=== PATIENT | female | born 1960 | race Caucasian/White ===

== ENCOUNTER 2017-03-27 15:22 | Emergency (ER) | payer MEDICAID, OTHER ==
[~2017-03-27] VITALS: Ht 157.5 cm; Wt 49.9 kg
[2017-03-27 15:37] VITALS: BP 134/79
--- NOTE | 2017-03-27 16:52 | NUR ---
Patient ambulated to bed 5. RN evaluating patient at bedside.
--- NOTE | 2017-03-27 16:53 | NUR ---
PATIENT PRESENTS TO ED WITH PT PRESENTS TO ER W/C/O DIZZINESS X3 DAYS. HX HTN, ASTHMA. PT STATES I RIDE THE BUS GOING HERE,PT CLAIMED I FEEL PAIN ON MY RIGHT ARM, CHEST AND HEAD. WITH CHILLS,DENIES N/V/D; SKIN IS PINK/WARM/DRY; AAOX4 WITH EVEN AND STEADY GAIT; LUNGS CLEAR BL; HR EVEN AND REGULAR; PT DENIES ANY FEVER, CP, SOB, OR COUGH AT THIS TIME; PATIENT STATES PAIN OF 10/10 AT THIS TIME; PATIENT POSITIONED FOR COMFORT; HOB ELEVATED; BEDRAILS UP X2; BED DOWN. ER MD MADE AWARE OF PT STATUS.
--- NOTE | 2017-03-27 17:50 | NUR ---
DR. SANCHEZ AT BEDSIDE
[2017-03-27] MEDS ORDERED: fentaNYL 0.05 MG/ML VIAL IVP ONE (17:55)
[2017-03-27] MEDS ORDERED: ONDANSETRON 4 MG/2 ML VIAL IVP ONE (17:55)
[2017-03-27] MEDS ORDERED: ASPIRIN 81 MG TAB.CHEW PO ONE (17:55)
--- NOTE | 2017-03-27 17:56 | NUR ---
RELAYED TO DR. SANCHEZ RESULT OF URINE DIPSTICK AND URINE
[2017-03-27 18:15] LABS: BASOPHILS # (AUTO) 0.2 K/uL (0.00-0.22); EOSINOPHILS # (AUTO) 0.1 K/uL (0-0.4); EOSINOPHILS % (AUTO) 3.4 % (0.0-4.0); HEMATOCRIT 39.9 % (36-48); HEMOGLOBIN 13.1 g/dL (12.0-16.0); LYMPHOCYTES # (AUTO) 1.5 K/uL (2.5-16.5); LYMPHOCYTES % (AUTO) 39.8 % (20.5-51.1); MEAN CORPUSCULAR HEMOGLOBIN 30 pg (27-31); MEAN CORPUSCULAR HGB CONC 33 g/dL (33-37); MEAN CORPUSCULAR VOLUME 90 fL (80-94); MONOCYTES # (AUTO) 0.4 K/uL (0.8-1.0); MONOCYTES % (AUTO) 11.3 % (1.7-9.3); NEUTROPHILS # (AUTO) 1.7 K/uL (1.8-7.7); PLATELET COUNT (AUTO) 206 K/uL (140-450); RED BLOOD CELL COUNT(AUTO) 4.41 MIL/uL (4.20-5.40); WHITE BLOOD COUNT (AUTO) 3.9 K/uL (4.8-10.8)
--- NOTE | 2017-03-27 18:21 | NUR ---
xray at bedside
[2017-03-27 18:28] LABS: APPEARANCE,URINE CLEAR (CLEAR); BILIRUBIN,URINE NEGATIVE (NEGATIVE); BLOOD, URINE NEGATIVE (NEGATIVE); COLOR,URINE YELLOW (YELLOW); LEUKOCYTE ESTERASE ,URINE NEGATIVE (NEGATIVE); NITRITE, URINE NEGATIVE (NEGATIVE); PROTEIN,URINE NEGATIVE (NEGATIVE); UGLUCOSE NEGATIVE (NEGATIVE); UROBILINOGEN,URINE 0.2 EU/dL (0.2 - 1)
[2017-03-27 18:29] LABS: CALCIUM 8.9 mg/dL (8.5-10.1); CARBON DIOXIDE 33.8 mmol/L (21-32); CREATININE 0.8 mg/dL (0.6-1.3); POTASSIUM 3.8 mmol/L (3.5-5.1)
[2017-03-27 18:32] LABS: INR 1.1 (0.8-1.2); PARTIAL THROMBOPLASTIN TIME 25.2 secs (22-35.6); PROTHROMBIN TIME 10.9 secs (10.8-13.4)
--- NOTE | 2017-03-27 18:32 | NUR ---
TALKED TO DR. SANCHEZ MADE AWARE O2 SAT 91 BUT NO SOBMD WITH ORDER
--- NOTE | 2017-03-27 18:33 | NUR ---
PT STILL C/O DIZZINESS, VITAL SIGN OBTAINED, PT AAO, EATING PUDDING AT THIS TIME
[2017-03-27 18:35] LABS: ALBUMIN 3.4 g/dL (3.4-5.0); TOTAL PROTEIN, SERUM 7.4 g/dL (6.4-8.2)
--- NOTE | 2017-03-27 19:13 | NUR ---
Pt report given to lucius. Transfer of care at this time.
--- NOTE | 2017-03-27 19:15 | NUR ---
REPORT RECEIVED FROM JANIE KILPATRICK
[2017-03-27] MEDS ORDERED: NACL 0.9% 1,000 ML IV ONE (20:05)
[2017-03-27] MEDS ORDERED: LORazepam 2 MG/ML VIAL IVP ONE (20:10)
--- NOTE | 2017-03-27 20:18 | NUR ---
TALKED WITH SOPHIA CULVER TO DISCHARGE PT AFTER IVF COMPLETE.
[2017-03-27 20:34] VITALS: BP 136/69
--- NOTE | 2017-03-27 20:35 | NUR ---
Patient discharged with v/s stable. Written and verbal after care instructions given and explained. Patient verbalized understanding. Ambulatory with steady gait. All questions addressed prior to discharge. Advised to follow up with PMD.
--- NOTE | 2017-03-30 21:58 | NUR ---
LATE ENTRY: NS COMPLETED AT 2034 WHEN PT WAS DISCHARGED.
== END 2017-03-27 20:34 | disposition home or self-care (01) ==
LOC: MED 15:22
DX: E86.0 Dehydration (principal); F41.9 Anxiety disorder, unspecified; I10 Essential (primary) hypertension
CPT/HCPCS: 36415; 71010; 80053; 81003; 81025; 83880; 84484; 85025; 85610; 85730; 93005; 96374; 96375; 99285; J2405; J3010; J7030; 81002; 96360

== ENCOUNTER 2018-05-15 17:13 | Emergency (ER) | payer OTHER ==
[~2018-05-15] VITALS: Ht 157.5 cm; Wt 54.0 kg
[2018-05-15 17:15] VITALS: BP 146/64
[2018-05-15] MEDS ORDERED: KETOROLAC 30 MG/ML VIAL IVP ONE (17:50)
[2018-05-15] MEDS ORDERED: LORazepam 2 MG/ML VIAL IVP ONE (17:50)
[2018-05-15 18:26] LABS: BASOPHILS % (AUTO) 0.4 % (0.0-2.0); EOSINOPHILS # (AUTO) 0.2 K/uL (0-0.4); EOSINOPHILS % (AUTO) 4.6 % (0.0-4.0); HEMOGLOBIN 12.1 g/dL (12.0-16.0); LYMPHOCYTES # (AUTO) 1.6 K/uL (2.5-16.5); LYMPHOCYTES % (AUTO) 40.1 % (20.5-51.1); MEAN CORPUSCULAR HEMOGLOBIN 30 pg (27-31); MEAN CORPUSCULAR HGB CONC 33 g/dL (33-37); MEAN CORPUSCULAR VOLUME 91.4 fL (80-94); MONOCYTES # (AUTO) 0.4 K/uL (0.8-1.0); MONOCYTES % (AUTO) 10.3 % (1.7-9.3); NEUTROPHILS # (AUTO) 1.8 K/uL (1.8-7.7); NEUTROPHILS % (AUTO) 44.6 % (42.2-75.2); PLATELET COUNT (AUTO) 172 K/uL (140-450); RED BLOOD CELL COUNT(AUTO) 4.04 MIL/uL (4.20-5.40); RED CELL DISTRIBUTION WIDTH 13.6 % (11.6-13.7)
[2018-05-15 18:41] LABS: ANION GAP 9.8 (8-16); CARBON DIOXIDE 31.1 mmol/L (21-32); CREATININE 0.8 mg/dL (0.6-1.3); POTASSIUM 3.9 mmol/L (3.5-5.1)
[2018-05-15 18:49] LABS: PROTHROMBIN TIME 10.9 secs (10.8-13.4)
[2018-05-15 19:09] LABS: ALBUMIN 3.1 g/dL (3.4-5.0)
[2018-05-15 20:55] VITALS: BP 138/62
== END 2018-05-15 20:55 | disposition home or self-care (01) ==
LOC: MED 17:13
DX: R07.89 Other chest pain (principal); F48.9 Nonpsychotic mental disorder, unspecified; M25.561 Pain in right knee; R20.0 Anesthesia of skin; I10 Essential (primary) hypertension
CPT/HCPCS: 36415; 71045; 80053; 83880; 84484; 85025; 85610; 85730; 93005; 96374; 96375; 99285; J1885; J2060

== ENCOUNTER 2018-09-11 08:35 | Emergency (ER) | payer OTHER ==
[~2018-09-11] VITALS: Ht 157.5 cm; Wt 47.6 kg
[2018-09-11 08:45] VITALS: BP 142/86
[2018-09-11] MEDS ORDERED: NACL 0.9% 500 ML IV SCH (09:11)
[2018-09-11 09:49] LABS: BASOPHILS # (AUTO) 0.1 K/uL (0.00-0.22); BASOPHILS % (AUTO) 0.6 % (0.0-2.0); EOSINOPHILS % (AUTO) 0.5 % (0.0-4.0); HEMATOCRIT 37.7 % (36-48); HEMOGLOBIN 12.4 g/dL (12.0-16.0); LYMPHOCYTES # (AUTO) 1.5 K/uL (2.5-16.5); MEAN CORPUSCULAR HEMOGLOBIN 30 pg (27-31); MEAN CORPUSCULAR HGB CONC 33 g/dL (33-37); MONOCYTES # (AUTO) 0.7 K/uL (0.8-1.0); MONOCYTES % (AUTO) 7.3 % (1.7-9.3); NEUTROPHILS # (AUTO) 7.1 K/uL (1.8-7.7); NEUTROPHILS % (AUTO) 75.6 % (42.2-75.2); PLATELET COUNT (AUTO) 207 K/uL (140-450); RED BLOOD CELL COUNT(AUTO) 4.14 MIL/uL (4.20-5.40); RED CELL DISTRIBUTION WIDTH 13.3 % (11.6-13.7); WHITE BLOOD COUNT (AUTO) 9.4 K/uL (4.8-10.8)
[2018-09-11 09:58] LABS: APPEARANCE,URINE CLEAR (CLEAR); BILIRUBIN,URINE NEGATIVE (NEGATIVE); BLOOD, URINE NEGATIVE (NEGATIVE); COLOR,URINE YELLOW (YELLOW); LEUKOCYTE ESTERASE ,URINE TRACE (NEGATIVE); NITRITE, URINE NEGATIVE (NEGATIVE); PH,URINE 8.5 (5.0-9.0); UGLUCOSE NEGATIVE (NEGATIVE)
[2018-09-11 09:59] LABS: RBC,URINE 0-5 (RARE) /HPF (0-5)
[2018-09-11 10:01] LABS: WBC,URINE 0-5 (RARE) /HPF (0-5)
[2018-09-11 10:07] LABS: PROTHROMBIN TIME 10.1 secs (10.8-13.4)
[2018-09-11 10:11] LABS: ANION GAP 12.2 (8-16); CARBON DIOXIDE 30.3 mmol/L (21-32); POTASSIUM 3.5 mmol/L (3.5-5.1)
[2018-09-11 10:12] LABS: CREATININE 0.8 mg/dL (0.6-1.3)
[2018-09-11 10:31] LABS: ALBUMIN 3.3 g/dL (3.4-5.0); TOTAL BILIRUBIN 1.3 mg/dL (0.0-1.0)
[2018-09-11] MEDS ORDERED: cefTRIAXone 1,000 MG VIAL ONE (11:50)
[2018-09-11 13:04] VITALS: BP 172/86
== END 2018-09-11 13:05 | disposition home or self-care (01) ==
LOC: MED 08:35
DX: N39.0 Urinary tract infection, site not specified (principal); N23 Unspecified renal colic; J45.909 Unspecified asthma, uncomplicated; I10 Essential (primary) hypertension; Z88.1 Allergy status to other antibiotic agents
CPT/HCPCS: 36415; 71045; 74176; 80053; 81001; 83605; 83880; 84484; 85025; 85610; 85730; 87040; 87086; 93005; 96361; 96365; 99284; J0696; J7030; Q0092

== ENCOUNTER 2019-06-01 16:35 | Emergency (ER) | payer OTHER ==
[~2019-06-01] VITALS: Ht 154.9 cm; Wt 54.9 kg
[2019-06-01 16:58] VITALS: BP 141/75
[2019-06-01] MEDS ORDERED: IBUPROFEN 400 MG TAB PO ONE (18:20)
[2019-06-01 19:28] VITALS: BP 130/74
== END 2019-06-01 19:28 | disposition home or self-care (01) ==
LOC: MED 16:35
DX: S90.122A Contusion of left lesser toe(s) without damage to nail, initial encounter (principal); M25.512 Pain in left shoulder; J45.909 Unspecified asthma, uncomplicated; I10 Essential (primary) hypertension; F41.9 Anxiety disorder, unspecified; Z86.718 Personal history of other venous thrombosis and embolism; Z88.1 Allergy status to other antibiotic agents; Z98.890 Other specified postprocedural states; W01.0XXA Fall on same level from slipping, tripping and stumbling without subsequent striking against object, initial encounter; Y93.89 Activity, other specified; Y92.89 Other specified places as the place of occurrence of the external cause; Y99.8 Other external cause status
CPT/HCPCS: 73030; 73660; 99283; Q0092

== ENCOUNTER 2023-03-30 15:25 | Emergency (ER) | payer MEDICAID, OTHER ==
[~2023-03-30] VITALS: Ht 157.5 cm; Wt 53.5 kg
[2023-03-30 15:50] VITALS: BP 143/89
--- NOTE | 2023-03-30 15:57 | NUR ---
pt ambulatory to gabrielle
[2023-03-30 16:27] LABS: BASOPHILS % (AUTO) 0.5 % (0.0-2.0); EOSINOPHILS # (AUTO) 0.2 K/uL (0-0.4); EOSINOPHILS % (AUTO) 3.4 % (0.0-4.0); HEMATOCRIT 40.1 % (36-48); HEMOGLOBIN 13.3 g/dL (12.0-16.0); LYMPHOCYTES # (AUTO) 1.8 K/uL (2.5-16.5); LYMPHOCYTES % (AUTO) 28.9 % (20.5-51.1); MEAN CORPUSCULAR HEMOGLOBIN 30 pg (27-31); MEAN CORPUSCULAR HGB CONC 33 g/dL (33-37); MEAN CORPUSCULAR VOLUME 89.2 fL (80-94); MONOCYTES # (AUTO) 0.7 K/uL (0.8-1.0); MONOCYTES % (AUTO) 11.2 % (1.7-9.3); NEUTROPHILS # (AUTO) 3.5 K/uL (1.8-7.7); PLATELET COUNT (AUTO) 297 K/uL (140-450); RED CELL DISTRIBUTION WIDTH 14.7 % (11.6-13.7); WHITE BLOOD COUNT (AUTO) 6.3 K/uL (4.8-10.8)
[2023-03-30 16:47] LABS: ALBUMIN 3.3 g/dL (3.4-5.0); ANION GAP 12.5 (8-16); CARBON DIOXIDE 31.5 mmol/L (21-32); CREATININE 1.1 mg/dL (0.6-1.3); TOTAL BILIRUBIN 0.9 mg/dL (0.0-1.0)
[2023-03-30] MEDS ORDERED: KETOROLAC 60 MG/2 ML VIAL IM ONE (17:25)
[2023-03-30] MEDS ORDERED: IBUP-2213 PO (17:29)
--- NOTE | 2023-03-30 17:46 | NUR ---
Patient discharged with v/s stable. Written and verbal after care instructions given and explained. Patient verbalized understanding. Pt has been medicated per providers orders. Pt has with steady gait. All questions addressed prior to discharge. Advised to follow up with PMD.
[2023-03-30 17:47] VITALS: BP 125/77
--- NOTE | 2023-03-30 17:56 | NUR ---
The patient's care was reviewed and supervised by Malone 05 STEPHANIE, RN.
== END 2023-03-30 17:46 | disposition home or self-care (01) ==
LOC: MED 15:25
DX: R10.84 Generalized abdominal pain (principal); J45.909 Unspecified asthma, uncomplicated; I10 Essential (primary) hypertension; Z88.8 Allergy status to other drugs, medicaments and biological substances; Z79.899 Other long term (current) drug therapy; Z90.49 Acquired absence of other specified parts of digestive tract
CPT/HCPCS: 36415; 74176; 80053; 83690; 85025; 96372; 99285; J1885

== ENCOUNTER 2023-04-02 11:44 | Inpatient (IN) | payer MEDICAID ==
[~2023-04-02] VITALS: Ht 157.5 cm; Wt 70.3 kg
[~2023-04-02 11:44] MED LIST: IBUP-2213 PO
[2023-04-02 11:47] VITALS: BP 146/86; PULSE 90; RESP 18; TEMP 97; O2SAT 93
[2023-04-02] MEDS ORDERED: NACL 0.9% 1,000 ML IV SCH (12:35)
[2023-04-02] MEDS ORDERED: KETOROLAC 30 MG/ML VIAL IVP ONE (12:40)
[2023-04-02] MEDS ORDERED: ALBUTEROL SULFATE/IPRATROPIU 3 ML SOL IH ONE (12:40)
[2023-04-02 12:47] VITALS: PULSE 83; RESP 16; O2SAT 94
[2023-04-02 13:04] LABS: BASOPHILS % (AUTO) 0.5 % (0.0-2.0); EOSINOPHILS # (AUTO) 0.2 K/uL (0-0.4); EOSINOPHILS % (AUTO) 3.3 % (0.0-4.0); HEMOGLOBIN 13.4 g/dL (12.0-16.0); LYMPHOCYTES # (AUTO) 1.2 K/uL (2.5-16.5); LYMPHOCYTES % (AUTO) 19.1 % (20.5-51.1); MEAN CORPUSCULAR HEMOGLOBIN 30 pg (27-31); MEAN CORPUSCULAR HGB CONC 34 g/dL (33-37); MONOCYTES # (AUTO) 0.8 K/uL (0.8-1.0); NEUTROPHILS # (AUTO) 4.2 K/uL (1.8-7.7); NEUTROPHILS % (AUTO) 65.1 % (42.2-75.2); PLATELET COUNT (AUTO) 273 K/uL (140-450); RED CELL DISTRIBUTION WIDTH 14.3 % (11.6-13.7); WHITE BLOOD COUNT (AUTO) 6.4 K/uL (4.8-10.8)
[2023-04-02 13:19] LABS: ALBUMIN 3.2 g/dL (3.4-5.0); CALCIUM 10.1 mg/dL (8.5-10.1); CARBON DIOXIDE 32.4 mmol/L (21-32); POTASSIUM 4.4 mmol/L (3.5-5.1); TOTAL BILIRUBIN 0.9 mg/dL (0.0-1.0); TOTAL PROTEIN, SERUM 9.4 g/dL (6.4-8.2)
[2023-04-02 13:21] LABS: CREATINE KINASE, TOTAL 54 U/L (26-192)
[2023-04-02 13:23] LABS: INR 0.94 (0.8-1.2); LACTIC ACID 1.1 mmol/L (0.4-2.0); PROTHROMBIN TIME 9.9 secs (10.8-13.4)
[2023-04-02 13:28] LABS: PARTIAL THROMBOPLASTIN TIME 51.2 secs (22-35.6)
[2023-04-02 14:47] LABS: APPEARANCE,URINE CLEAR (CLEAR); BILIRUBIN,URINE NEGATIVE (NEGATIVE); BLOOD, URINE NEGATIVE (NEGATIVE); COLOR,URINE YELLOW (YELLOW); LEUKOCYTE ESTERASE ,URINE NEGATIVE (NEGATIVE); NITRITE, URINE NEGATIVE (NEGATIVE); PROTEIN,URINE NEGATIVE (NEGATIVE); UGLUCOSE NEGATIVE (NEGATIVE); UROBILINOGEN,URINE 0.2 EU/dL (0.2 - 1)
[2023-04-02] MEDS ORDERED: AZITHROMYCIN 500 MG in DEXTROSE 5% 250 ML IV ONE (15:45)
[2023-04-02] MEDS ORDERED: HYDROcodone/APAP 5/325 MG 1 TAB TAB PO PRN (16:40)
[2023-04-02] MEDS ORDERED: POTASSIUM CHLORIDE 10 MEQ TABER PO PRN (16:40)
[2023-04-02] MEDS ORDERED: MAG SULF 2000 MG/WATER PREMIX 50 ML IV PRN (16:40)
[2023-04-02] MEDS ORDERED: MORPHINE SULFATE 2 MG/ML SYR IVP PRN (16:40)
[2023-04-02] MEDS ORDERED: ONDANSETRON 4 MG/2 ML VIAL IVP PRN (16:40)
[2023-04-02] MEDS ORDERED: MAGNESIUM OXIDE 400 MG TAB PO PRN (16:40)
[2023-04-02] MEDS ORDERED: KCL 20 MEQ IN 100 mL PREMIX 200 ML IV PRN (16:40)
[2023-04-02] MEDS ORDERED: ACETAMINOPHEN 325 MG TAB PO PRN (16:40)
[2023-04-02] MEDS ORDERED: cefTRIAXone 1,000 MG VIAL ONE (17:41)
[2023-04-02] MEDS ORDERED: AZITHROMYCIN 500 MG INJ VIAL IV ONE (17:41)
[2023-04-02] MEDS: AZITHROMYCIN 500 MG in DEXTROSE 5% 250 ML IV SCH (17:43)
[2023-04-02 19:02] VITALS: PULSE 72; RESP 20; O2SAT 95
[2023-04-02 19:04] VITALS: O2SAT 95
[2023-04-02] MEDS: ALBUTEROL SULFATE/IPRATROPIU 3 ML SOL IH SCH (19:04)
[2023-04-02 21:20] VITALS: BP 142/66; PULSE 74; PULSE 76; RESP 18; TEMP 97.9; O2SAT 95
[2023-04-02 21:30] VITALS: PULSE 73; RESP 16; O2SAT 94
[2023-04-03] VITALS (12 sets, daily range): BP systolic 120–153; BP diastolic 61–87; PULSE 60–92; RESP 18–20; TEMP 96.5–98.7; O2SAT 92–98
[2023-04-03] MEDS: ALBUTEROL SULFATE/IPRATROPIU 3 ML SOL IH SCH ×4 (01:15→19:00)
[2023-04-03 06:54] LABS: ALBUMIN 2.6 g/dL (3.4-5.0); ANION GAP 11.5 (8-16); CALCIUM 9.2 mg/dL (8.5-10.1); CARBON DIOXIDE 29.9 mmol/L (21-32); MAGNESIUM 1.8 mg/dL (1.8-2.4); POTASSIUM 4.4 mmol/L (3.5-5.1); TOTAL BILIRUBIN 0.6 mg/dL (0.0-1.0); TOTAL PROTEIN, SERUM 7.7 g/dL (6.4-8.2)
[2023-04-03 07:03] LABS: BASOPHILS % (AUTO) 0.5 % (0.0-2.0); EOSINOPHILS # (AUTO) 0.2 K/uL (0-0.4); EOSINOPHILS % (AUTO) 4.2 % (0.0-4.0); HEMATOCRIT 35.8 % (36-48); HEMOGLOBIN 11.9 g/dL (12.0-16.0); LYMPHOCYTES # (AUTO) 1.3 K/uL (2.5-16.5); LYMPHOCYTES % (AUTO) 28.1 % (20.5-51.1); MEAN CORPUSCULAR HEMOGLOBIN 30 pg (27-31); MEAN CORPUSCULAR HGB CONC 33 g/dL (33-37); MEAN CORPUSCULAR VOLUME 90.4 fL (80-94); MONOCYTES # (AUTO) 0.7 K/uL (0.8-1.0); MONOCYTES % (AUTO) 15.5 % (1.7-9.3); NEUTROPHILS # (AUTO) 2.4 K/uL (1.8-7.7); NEUTROPHILS % (AUTO) 51.7 % (42.2-75.2); PLATELET COUNT (AUTO) 238 K/uL (140-450); RED BLOOD CELL COUNT(AUTO) 3.96 MIL/uL (4.20-5.40); RED CELL DISTRIBUTION WIDTH 14.4 % (11.6-13.7); WHITE BLOOD COUNT (AUTO) 4.7 K/uL (4.8-10.8)
[2023-04-03] MEDS: predniSONE 20 MG TAB PO SCH (15:22)
[2023-04-03] MEDS: AZITHROMYCIN 500 MG in DEXTROSE 5% 250 ML IV SCH (16:43)
[2023-04-04] VITALS: BP 140/69; PULSE 74; RESP 18; TEMP 96.9; O2SAT 94
[2023-04-04] MEDS: ALBUTEROL SULFATE/IPRATROPIU 3 ML SOL IH SCH ×2 (00:47→07:05)
[2023-04-04 06:54] LABS: BASOPHILS % (AUTO) 0.6 % (0.0-2.0); EOSINOPHILS % (AUTO) 0.1 % (0.0-4.0); HEMATOCRIT 38.3 % (36-48); HEMOGLOBIN 12.7 g/dL (12.0-16.0); LYMPHOCYTES # (AUTO) 0.9 K/uL (2.5-16.5); LYMPHOCYTES % (AUTO) 14.1 % (20.5-51.1); MEAN CORPUSCULAR HEMOGLOBIN 30 pg (27-31); MEAN CORPUSCULAR HGB CONC 33 g/dL (33-37); MONOCYTES # (AUTO) 0.5 K/uL (0.8-1.0); MONOCYTES % (AUTO) 7.2 % (1.7-9.3); PLATELET COUNT (AUTO) 260 K/uL (140-450); RED BLOOD CELL COUNT(AUTO) 4.26 MIL/uL (4.20-5.40); RED CELL DISTRIBUTION WIDTH 14.4 % (11.6-13.7); WHITE BLOOD COUNT (AUTO) 6.4 K/uL (4.8-10.8)
[2023-04-04 07:05] VITALS: PULSE 65; RESP 18; O2SAT 92
[2023-04-04 08:00] VITALS: BP 131/61; PULSE 75; RESP 17; TEMP 97.5; O2SAT 92
[2023-04-04 08:31] LABS: ALBUMIN 2.9 g/dL (3.4-5.0); ANION GAP 14.2 (8-16); CALCIUM 9.6 mg/dL (8.5-10.1); CARBON DIOXIDE 28.4 mmol/L (21-32); CREATININE 0.9 mg/dL (0.6-1.3); POTASSIUM 4.6 mmol/L (3.5-5.1); TOTAL BILIRUBIN 0.4 mg/dL (0.0-1.0); TOTAL PROTEIN, SERUM 8.8 g/dL (6.4-8.2)
[2023-04-04] MEDS: predniSONE 20 MG TAB PO SCH (09:29)
[2023-04-04] MEDS ORDERED: PRED20TA5 PO (09:37)
[2023-04-04] MEDS ORDERED: AZIT500T PO (09:37)
[2023-04-04] MEDS ORDERED: ALBU2.5V IH (09:37)
[2023-04-04] MEDS ORDERED: ALBU0.0912 IH (09:37)
[2023-04-04] MEDS ORDERED: BUDE1AER IH (10:14)
== END 2023-04-04 11:20 | disposition home or self-care (01) | DRG 139 ==
LOC: MED 11:44 → MTU 16:43
PROVIDERS: ADMIT Internal Medicine; ATTEND Internal Medicine
DX: J18.9 Pneumonia, unspecified organism (principal); J96.01 Acute respiratory failure with hypoxia; E44.0 Moderate protein-calorie malnutrition; R65.10 Systemic inflammatory response syndrome (SIRS) of non-infectious origin without acute organ dysfunction; J45.901 Unspecified asthma with (acute) exacerbation; K44.9 Diaphragmatic hernia without obstruction or gangrene; I10 Essential (primary) hypertension; M54.50 Low back pain, unspecified; E66.9 Obesity, unspecified; K57.30 Diverticulosis of large intestine without perforation or abscess without bleeding; N20.0 Calculus of kidney; Z88.1 Allergy status to other antibiotic agents; Z79.899 Other long term (current) drug therapy; Z90.49 Acquired absence of other specified parts of digestive tract; Z68.28 Body mass index [BMI] 28.0-28.9, adult
CPT/HCPCS: 36415; 71045; 71275; 80053; 81003; 82550; 83605; 83735; 83880; 84484; 85025; 85379; 85610; 85730; 87040; 87081; 87086; 93005; 94640; 96374; 99285; J0456; J0696; J1644; J1885; J7060; J7512; Q0092; Q9967

== ENCOUNTER 2023-10-03 17:29 | Inpatient (IN) | payer MEDICAID ==
[~2023-10-03] VITALS: Ht 157.5 cm; Wt 49.9 kg
[~2023-10-03 17:29] MED LIST changes: +ALBU0.0912 IH; +ALBU2.5V IH; +AZIT500T PO; +BUDE1AER IH; +PRED20TA5 PO
[2023-10-03 17:35] VITALS: BP 166/92; PULSE 80; RESP 18; TEMP 99; O2SAT 97
[2023-10-03] MEDS ORDERED: ALBUTEROL SULFATE/IPRATROPIU 3 ML SOL IH ONE (18:25)
[2023-10-03 18:33] LABS: APPEARANCE,URINE CLEAR (CLEAR); BILIRUBIN,URINE NEGATIVE (NEGATIVE); BLOOD, URINE NEGATIVE (NEGATIVE); COLOR,URINE YELLOW (YELLOW); LEUKOCYTE ESTERASE ,URINE NEGATIVE (NEGATIVE); NITRITE, URINE NEGATIVE (NEGATIVE); PROTEIN,URINE TRACE (NEGATIVE); UGLUCOSE NEGATIVE (NEGATIVE); UROBILINOGEN,URINE 0.2 EU/dL (0.2 - 1)
[2023-10-03 18:43] LABS: BACTERIA,URINE None Seen /HPF (None Seen); RBC,URINE 0-5 /HPF (0-5); SQUAMOUS EPITHELIAL CELL,UR 0-3 (FEW) /LPF (0-3 (FEW)); WBC,URINE NONE SEEN /HPF (0-5)
[2023-10-03 19:06] VITALS: PULSE 83; RESP 18; O2SAT 95
[2023-10-03] MEDS ORDERED: predniSONE 20 MG TAB PO ONE (19:15)
[2023-10-03 19:23] LABS: BASOPHILS # (AUTO) 0.1 K/uL (0.00-0.22); BASOPHILS % (AUTO) 0.7 % (0.0-2.0); EOSINOPHILS # (AUTO) 0.2 K/uL (0-0.4); EOSINOPHILS % (AUTO) 1.7 % (0.0-4.0); HEMATOCRIT 41.2 % (36-48); LYMPHOCYTES # (AUTO) 1.6 K/uL (2.5-16.5); LYMPHOCYTES % (AUTO) 14.9 % (20.5-51.1); MEAN CORPUSCULAR HEMOGLOBIN 30 pg (27-31); MEAN CORPUSCULAR HGB CONC 34 g/dL (33-37); NEUTROPHILS # (AUTO) 7.9 K/uL (1.8-7.7); NEUTROPHILS % (AUTO) 73.7 % (42.2-75.2); PLATELET COUNT (AUTO) 266 K/uL (140-450); RED BLOOD CELL COUNT(AUTO) 4.63 MIL/uL (4.20-5.40); RED CELL DISTRIBUTION WIDTH 14.1 % (11.6-13.7); WHITE BLOOD COUNT (AUTO) 10.7 K/uL (4.8-10.8)
[2023-10-03 19:50] LABS: ANION GAP 12.2 (8-16); CALCIUM 9.9 mg/dL (8.5-10.1); CARBON DIOXIDE 29.6 mmol/L (21-32); POTASSIUM 3.8 mmol/L (3.5-5.1)
[2023-10-03 19:59] LABS: ALANINE AMINOTRANSFERASE 12 U/L (12-78); ALBUMIN 3.1 g/dL (3.4-5.0); ALKALINE PHOSPHATASE 146 U/L (50-136); ASPARTATE AMINOTRANSFERASE 14 U/L (15-37); BILIRUBIN,DIRECT 0.1 mg/dL (0.0-0.3); TOTAL BILIRUBIN 1.2 mg/dL (0.0-1.0); TOTAL PROTEIN, SERUM 8.4 g/dL (6.4-8.2)
[2023-10-03] MEDS ORDERED: ASPIRIN 325 MG TAB PO ONE (22:30)
[2023-10-03 23:45] VITALS: BP 141/75; PULSE 75; RESP 18; TEMP 99; O2SAT 97
[2023-10-04] VITALS (15 sets, daily range): BP systolic 114–138; BP diastolic 56–72; PULSE 59–76; RESP 17–20; TEMP 97–99; O2SAT 94–97
[2023-10-04] MEDS ORDERED: HYDROcodone/APAP 5/325 MG 1 TAB TAB PO PRN ×2 (10:20→10:24)
[2023-10-04] MEDS: MORPHINE SULFATE 2 MG/ML SYR IVP PRN ×2 (10:43→21:37)
[2023-10-04] MEDS: ALBUTEROL SULFATE/IPRATROPIU 3 ML SOL IH SCH ×2 (15:15→19:58)
[2023-10-04] MEDS: methylPREDNISolone SS 40 MG/ML VIAL IVP SCH (21:32)
[2023-10-05] VITALS (14 sets, daily range): BP systolic 107–148; BP diastolic 50–82; PULSE 60–97; RESP 16–20; TEMP 97.8–98; O2SAT 87–98
[2023-10-05] MEDS: ALBUTEROL SULFATE/IPRATROPIU 3 ML SOL IH SCH ×4 (01:00→20:44)
[2023-10-05] MEDS: MORPHINE SULFATE 2 MG/ML SYR IVP PRN (06:33)
[2023-10-05] MEDS: methylPREDNISolone SS 40 MG/ML VIAL IVP SCH ×2 (09:00→20:24)
[2023-10-05] MEDS ORDERED: ONDANSETRON 4 MG/5 ML ORASYR GT PRN (11:25)
[2023-10-05] MEDS ORDERED: ONDANSETRON 4 MG/2 ML VIAL IVP PRN (11:45)
[2023-10-06] VITALS (7 sets, daily range): BP systolic 94–136; BP diastolic 50–69; PULSE 62–83; RESP 16–19; TEMP 97.1–97.8; O2SAT 94–99
[2023-10-06] MEDS: ALBUTEROL SULFATE/IPRATROPIU 3 ML SOL IH SCH ×4 (01:32→19:59)
[2023-10-06] MEDS: methylPREDNISolone SS 40 MG/ML VIAL IVP SCH ×2 (14:02→21:12)
[2023-10-07 00:59] VITALS: PULSE 76; RESP 16; O2SAT 95
[2023-10-07] MEDS: ALBUTEROL SULFATE/IPRATROPIU 3 ML SOL IH SCH ×3 (00:59→13:50)
[2023-10-07 04:00] VITALS: BP 127/59; PULSE 68; TEMP 97.5; O2SAT 97
[2023-10-07 07:05] VITALS: PULSE 61; RESP 16; O2SAT 96
[2023-10-07 08:00] VITALS: BP 119/64; PULSE 70; RESP 18; TEMP 97.6; O2SAT 96
[2023-10-07] MEDS: methylPREDNISolone SS 40 MG/ML VIAL IVP SCH (09:44)
[2023-10-07] MEDS ORDERED: PRED50TA3 PO (11:18)
[2023-10-07] MEDS ORDERED: AZIT250T4 PO (11:18)
[2023-10-07] MEDS ORDERED: CALC500C17 PO (11:19)
[2023-10-07] MEDS ORDERED: IBUP200C97 PO (11:28)
[2023-10-07] MEDS ORDERED: ACET-10509 PO (11:28)
[2023-10-07 11:31] VITALS: BP 119/64; PULSE 70; RESP 18; TEMP 97.6
== END 2023-10-07 14:50 | disposition home or self-care (01) | DRG 141 ==
LOC: MED 17:29 → OBSVTOIN 22:32 → MTU 22:32
PROVIDERS: ADMIT Student in an Organized Health Care Education/Training Program; ATTEND Student in an Organized Health Care Education/Training Program
DX: J45.901 Unspecified asthma with (acute) exacerbation (principal); J96.01 Acute respiratory failure with hypoxia; R64 Cachexia; E44.1 Mild protein-calorie malnutrition; I10 Essential (primary) hypertension; E78.5 Hyperlipidemia, unspecified; R73.9 Hyperglycemia, unspecified; Z88.1 Allergy status to other antibiotic agents; Z79.899 Other long term (current) drug therapy; Z79.1 Long term (current) use of non-steroidal anti-inflammatories (NSAID); Z68.42 Body mass index [BMI] 45.0-49.9, adult
CPT/HCPCS: 36415; 71045; 80048; 80076; 81001; 83880; 84484; 85025; 87081; 93005; 94640; 99285; J0696; J2270; J2405; J2920; J7060; J7512; Q0162